=== PATIENT | male | born 1950 | race Caucasian/White ===

== ENCOUNTER 2016-02-10 14:05 | Inpatient (IN) | payer OTHER, MEDICARE ==
[~2016-02-10] VITALS: Ht 180.3 cm; Wt 101.6 kg
[~2016-02-10 14:05] MED LIST: ASPI325T32 PO; Alum-Mag Hydrox-Simeth 30 mL Suspension PO PRN; HYDR-4003 PO; METO25TA99 PO; Ondansetron 2 mg/mL 2 mL Inj IVPUSH PRN; Polyethylene Glycol (PEG) 17 Gm Powder PO PRN; Senna-Docusate 8.6-50 mg Tablet PO PRN; Sodium Chloride LOK Flush 10 mL Syringe IVFLUSH SCH
[2016-03-13 08:30] VITALS: BP 154/83; PULSE 94; RESP 20; O2SAT 100
[2016-03-13 08:39] VITALS: PULSE 122
[2016-03-13] MEDS ORDERED: Atropine 1 mg/10 mL (Code) Syringe IVPUSH PRN (08:40)
[2016-03-13] MEDS ORDERED: Polyethylene Glycol (PEG) 17 Gm Powder PO PRN (08:40)
[2016-03-13] MEDS ORDERED: Ondansetron 2 mg/mL 2 mL Inj IVPUSH PRN (08:40)
[2016-03-13] MEDS ORDERED: Senna-Docusate 8.6-50 mg Tablet PO PRN (08:40)
[2016-03-13] MEDS ORDERED: Alum-Mag Hydrox-Simeth 30 mL Suspension PO PRN (08:40)
[2016-03-13] MEDS ORDERED: WARF5TAB PO (09:17)
[2016-03-13] MEDS ORDERED: METO-272 PO (09:17)
[2016-03-13] MEDS ORDERED: LISI-571 PO (09:17)
[2016-03-13 09:35] LABS: Mean Corpuscular Hemoglobin 30.4 pg (27.0-35.0); Mean Corpuscular Volume 91.5 fL (81-100)
[2016-03-13 09:52] LABS: INR 3.72 ratio
[2016-03-13 12:31] VITALS: BP 142/95; PULSE 71; RESP 18; O2SAT 96
--- NOTE | 2016-03-13 14:13 | PCM.PHAPRO ---
Progress Warfarin Management by Pharmacy: -Indication: paroxysmal afib -Inr Goal: 2-3 -Home Dose: warfarin 5mg daily -Concurrent anticoagulation: none -Coag Trends: inr on admission today is 3.72 -Drug Interactions: none noted -H/H 14.7/44.2, Platelets 189 -Plan: will hold warfarin this evening. serial inr's have been ordered. pharmacy to follow and monitor Connie Byrd [facility] Mar 13, 2016 14:12
[2016-03-13 16:30] VITALS: BP 175/110; PULSE 95; RESP 20; O2SAT 100
[2016-03-13] MEDS: Sodium Chloride LOK Flush 10 mL Syringe IVFLUSH SCH (16:34)
--- NOTE | 2016-03-13 17:13 | NUR ---
Admit/Blood Pressure Pt. arrived from home with in room 2027 PCC at ~0815 to be monitored for a new med., sotalol. Pt. is independent at baseline, A&Ox3, ALVARADO, denies CP, SOB, N/V/D/C or abdominal pain. Pt. does c/o of his left shoulder stating "I slipped on some ice back in January and since then its been hurting, it hurts when I move it, and it hurts when I lay down in bed". Pt. is on tele and is AFIB per tele. Pt. had a blood pressure of 175/110 on the left and when I rechecked on the right arm it was 165/104 at ~ 1630. Pt. is asymptomatic stating "this is normal to me", was made aware
[2016-03-13 20:12] VITALS: BP_SYST 157; PULSE 68; RESP 16; O2SAT 96
[2016-03-13 23:42] VITALS: BP 143/94; PULSE 90; RESP 16; O2SAT 98
[2016-03-14] VITALS (9 sets, daily range): BP systolic 140–164; BP diastolic 87–114; PULSE 74–101; RESP 16–20; O2SAT 95–99
[2016-03-14] MEDS: Sodium Chloride LOK Flush 10 mL Syringe IVFLUSH SCH ×5 (00:30→23:29)
[2016-03-14 03:58] LABS: INR 4.15 ratio
--- NOTE | 2016-03-14 04:21 | NUR ---
Sotalol Loading Patient given sotalol dose at 5 in the evening. EKG done two hours post-dose; patient continues to be in a-fib with rates in the 80s-90s. QTc on new EKG 473. Continue to monitor.
[2016-03-14] MEDS: MeTOProlol XL 25 mg ER24 Tablet PO SCH (08:30)
--- NOTE | 2016-03-14 13:06 | PCM.PHAPRO ---
Progress WARFARIN MANAGEMENT PER PHARMACY [facility] DFF Date Mar 14-Mar INR 3.72 4.15 INR change 0.43 Warf Dose HELD HELD With uptrending INR, will continue to hold warfarin tonight. Will continue to monitor. Rosas Reardon, PharmD Rosas Reardon Mar 14, 2016 13:06
--- NOTE | 2016-03-14 14:51 | PROG NOTE ---
[address] [address] PROGRESS NOTE PATIENT: EDWARD INMAN : 1950 MR#: [id number] ADMIT: 03/13/2016 JOB ID: [id number] DATE: 03/14/2016 CHIEF COMPLAINT: Mild fatigue symptoms. The patient is a pleasant, 65-year-old man with a longstanding history of paroxysmal atrial fibrillation and who has become persistent in atrial fibrillation for the last few years. He had previously been treated with flecainide but developed side effects, and with the persistent atrial fib he has been fatigued and short-winded but denies any lightheadedness or syncope. He has also experienced some chest discomfort that seems atypical. Recent stress testing by nuclear perfusion study showed no evidence of ischemia or infarct. The patient is scheduled for an atrial fibrillation ablation procedure in April 2016. Prior to that, he will need to be on antiarrhythmic medication, and that is the purpose of this hospitalization. He has now had three doses of sotalol and is not feeling any particular side effects from the medication. He still has mild fatigue. He also notes pruritic legs, but this has been an ongoing problem for some months. He denies GI upset or lightheadedness. OBJECTIVE DATA: His initial ECG showed atrial fibrillation with an average rate of 116 BPM. The measured QT was 339 msec, QTc 471. After the first dose of sotalol, the rate came down to 92, but atrial fibrillation persisted. After the second dose of sotalol, the ECG showed average rate 96 BPM, in atrial fibrillation with a QTc of 473 msec. Now, after the third dose, the average rate in atrial fibrillation is 85 BPM, and QT interval measured by me is 395 msec with corrected QT of 470 msec. Lab data: The patient is on warfarin and his initial INR was high at 3.72 and warfarin was withheld. This morning, the INR is 4.15. Serum chemistry yesterday showed potassium 5.3, creatinine 1.09, magnesium 2.0. Vital signs continue show mild hypertension with BP today 151/95. Respiratory rate 20, and pulse oximetry shows 98% on room air. He is alert and well oriented, and in no distress. His physical exam is unchanged from yesterday. IMPRESSION AND PLAN: Persistent atrial fibrillation, average rate has come down from 116 BPM to 85 BPM after the third dose of sotalol. The QT interval has remained within the 15% limit, increased from baseline, and so the same dose of sotalol 80 mg b.i.d. will be continued. We will get an EKG two hours after this evening's dose and then plan on cardioversion tomorrow by Dr. Liz Bell.
--- NOTE | 2016-03-14 16:28 | CONS ---
[address] [address] CONSULTATION REPORT PATIENT: EDWARD INMAN : 1950 MR#: [id number] ADMIT: 03/13/2016 JOB ID: [id number] DATE OF SERVICE: 03/13/2016 CHIEF COMPLAINT: Persistent AFib. HISTORY OF PRESENT ILLNESS: The patient is a delightful 65-year-old man with paroxysmal now persistent atrial fibrillation. He reports fatigue and dyspnea on exertion along with awareness of palpitations. He is here for sotalol load. PAST MEDICAL HISTORY: 1. Cardiomyopathy-most recent echocardiogram showed ejection fraction of 40+/-5%. This study was performed January 29, 2016. 2. Paroxysmal mild persistent atrial fibrillation. 3. Hyperlipidemia. 4. Kidney stones. 5. Chronic left shoulder pain after a fall. 6. He has a history of hepatitis C treated with antiviral therapy and considered to be cured following interferon. 7. Cardiac evaluation: Cardiac cath March 2012 was reassuring. There was 40% to 50% stenosis in the proximal LAD at the bifurcation of the first diagonal branch, and he has been medically managed for this problem. 8. The most recent graded exercise stress test was performed March 08, 2016. It showed reduced exercise capacity, functional aerobic impairment index is 31%. There was medium sized [id number] intensity, partially reversible, lateral and inferior perfusion defect that resolved on prone images suggesting diaphragmatic attenuation artifact. SOCIAL HISTORY: The patient does not smoke. She is currently in school. FAMILY HISTORY: Father had a five-way bypass surgery in his 60s. Also had prostate cancer. Patient is accompanied by his , Callie. He does not smoke. REVIEW OF SYSTEMS: He reports irregularly irregular pulse, awareness of palpitations and leg swelling, fatigue and shortness of breath. Otherwise, 10 point review of systems is negative. ALLERGIES: No known drug allergies. HOME MEDICATIONS: 1. Lipitor 20 mg daily. 2. Lisinopril 5 mg daily. 3. Toprol-XL 50 mg daily. 4. Warfarin 5 mg daily. 5. Vicodin 5/325 every 6 hours as needed for pain. PHYSICAL EXAMINATION: In here, a very pleasant, well-nourished man in no apparent distress. Temperature 36.8, blood pressure 142/95 up to 175/110, heart rate 68 up to 122 satting 96% to 100% on room air. Eyes: No scleral icterus. Heart: Normal S1, S2. Irregularly irregular. No murmurs. Lungs are clear anteriorly and neck is supple. No lymphadenopathy. No carotid bruit. Abdomen. Soft, positive bowel sounds. No hepatosplenomegaly. Extremities: Warm, well perfused. No clubbing, cyanosis, or edema. Skin: No rashes or lesions. LABS: March 13 show normal CBC, normal creatinine of 1, potassium was mildly elevated at 5.3. His INR today was 4. ASSESSMENT AND PLAN: In summary, this is a delightful 65-year-old man admitted for sotalol load. He will receive two doses on Tuesday, two doses on Tuesday. I plan to give him a dose on Tuesday and then cardiovert him and then anticipate sending him home Tuesday afternoon, March 15, 2016. Thank you very much for the opportunity to evaluate this patient. [facility]
[2016-03-14 17:22] LABS: APPEARANCE,URINE CLEAR (CLEAR,HAZY); COLOR,URINE YELLOW (YELLOW)
[2016-03-14 17:23] LABS: OCCULT BLOOD,URINE NEGATIVE (NEGATIVE); PH,URINE 6.5 (5.0-8.0); UROBILINOGEN,URINE NORMAL (NORMAL)
--- NOTE | 2016-03-14 19:11 | NUR ---
Sotalol Loading Pt. was given sotalol around 0830, EKG ordered for 2hrs post. Pts. QTC was 494, PT. denies CP, SOB, or any type of pain. Pt. is in his room with his watching the football game comfortably.
--- NOTE | 2016-03-14 23:38 | NUR ---
Sotalol Loading Evening sotalol dose given at 2020. Two hour post EKG done at 2230; QTc 496. Patient NPO after midnight for planned cardioversion in the morning. Continue to monitor.
[2016-03-15] VITALS (12 sets, daily range): BP systolic 123–167; BP diastolic 83–116; PULSE 52–103; RESP 18–22; O2SAT 95–98
[2016-03-15] MEDS: Sodium Chloride LOK Flush 10 mL Syringe IVFLUSH SCH ×2 (00:30→09:46)
[2016-03-15 04:05] LABS: INR 2.69 ratio
[2016-03-15] MEDS ORDERED: 0.9% Sodium Chloride 1,000 ML IV SCH (08:00)
[2016-03-15] MEDS: MeTOProlol XL 25 mg ER24 Tablet PO SCH (08:30)
[2016-03-15] MEDS ORDERED: 0.9% Sodium Chloride 500 ML ONE (08:53)
[2016-03-15] MEDS ORDERED: fentaNYL-PF 50 mCg/mL 2 mL Inj ONE ×2 (08:54→08:55)
[2016-03-15] MEDS ORDERED: Flumazenil 0.1 mg/mL 5 mL Inj IV ONE (08:56)
[2016-03-15] MEDS ORDERED: Methohexital 10 mg/mL 50 mL Inj ONE (08:56)
--- NOTE | 2016-03-15 10:03 | PROCED ---
[address] [address] PROCEDURE NOTE PATIENT: EDWARD INMAN : 1950 MR#: [id number] ADMIT: 03/13/2016 JOB ID: [id number] DATE OF SERVICE: 03/15/2016 PREOPERATIVE DIAGNOSIS(ES): POSTOPERATIVE DIAGNOSIS(ES): SURGEON: iLz Bell MD PROCEDURES PERFORMED: ZOILA cardioversion. INDICATION: Atrial fibrillation. METHOD: Following informed consent, the patient underwent ZOILA which showed no evidence of left atrial appendage thrombus. His INR is 2.6. He is on warfarin. ZOILA showed mild cardiomyopathy which is consistent with tachycardia mediated cardiomyopathy. He was sedated with 25 mcg of fentanyl, 4 mg of Versed, and 40 mg of Brevital. Then, 200 joules of synchronized energy cardioversion was performed. Normal sinus rhythm was restored. Vital signs are stable. No complications immediately postprocedure. Thank you very much for the opportunity to participate in this patient's care.
[2016-03-15] MEDS ORDERED: SOTA80TA PO (10:24)
--- NOTE | 2016-03-15 10:56 | PCM.DIMED ---
Discharge Instructions Date of Service Mar 15, 2016 Dates of Hospitalization Mar 13, 2016 at 08:15 Discharge Diagnosis Discharge Diagnosis persistent afib tachycardia mediated cardiomyopathy Medication Instructions I transmitted electronically your new medicines to your pharmacy (Cristian Laura) Sotalol 80 mg twice a day Toprol XL (metoprolol succinate) 25 mg daily Lisinopril 20 mg daily continue Lipitor (Atorvastatin) 20 mg daily Continue warfarin (Coumadin) Take 5 mg on Tuesday, Tuesday and Tuesday Take 2.5 mg on Tuesday, , Tuesday and Tuesday Diet Low fat, Low Sodium Activity No restrictions Call your provider Shortness of breath, Bleeding Patient Instructions Follow-up in: 4 weeks Liz Bell MD Mar 15, 2016 10:56
[2016-03-15] MEDS ORDERED: METO25TA3 PO (11:01)
[2016-03-15] MEDS ORDERED: WARF5TAB7 PO (11:01)
[2016-03-15] MEDS ORDERED: LISI-567 PO (11:01)
--- NOTE | 2016-03-15 11:11 | NUR ---
To [facility] pt alert and oriented, independent, denies pain. ambulatory in room with steady gait. pt ordered for ZOILA and cardioversion in [facility]. sotalol dose given, and pt transported to [facility] via wheelchair at about 0830 structured cabling technician informed.
--- NOTE | 2016-03-15 11:30 | NUR ---
S/P [facility] procedure report from [facility] procedure completed. discharge instructions/meds processed in [facility]. Personal belongings taken to patient in [facility] at 1130. Pt discharged from [facility].
--- NOTE | 2016-03-15 11:53 | DIS ---
[address] [address] DISCHARGE SUMMARY PATIENT: EDWARD INMAN : 1950 MR#: [id number] ADMIT: 03/13/2016 JOB ID: [id number] DIS: 03/15/2016 DISCHARGE DIAGNOSES: 1. Persistent atrial fibrillation. 2. Tachycardia mediated cardiomyopathy. PROCEDURES PERFORMED: ZOILA on March 15, 2016. No evidence of left atrial appendage thrombus. ZOILA was followed by cardioversion. Normal sinus rhythm was restored. HOSPITAL COURSE: The patient was admitted electively for sotalol load. He had normal QTc with no evidence of ventricular tachycardia or QT prolongation. He underwent an elective ZOILA and cardioversion on March 15, and normal sinus rhythm was restored. Therefore, he is discharged home in stable condition on the following medications: 1. Lipitor 20 mg, one tablet by mouth daily. I sent a 90 day supply and three refills to his pharmacy. 2. Sotalol 80 mg, one tablet by mouth twice a day. I dispensed a one month supply with three refills. 3. Toprol-XL. Dose was reduced from 50 mg that he takes as an outpatient to 25 mg daily. One tablet daily. I dispensed a two month supply and three refills. 4. Lisinopril was increased from 5 mg home dose to 20 mg dose because of uncontrolled hypertension, and I called in a 90 day supply and three refills. 5. Warfarin. He was previously taking 5 mg pills daily. I had him take 2.5 mg on Tuesday, , Tuesday, Tuesday, and 5 mg Tuesday, Tuesday, Tuesday. The reason I did that is because his INR in the hospital was 3.7 on admission, 4 on March 14, and 2.7 today, so I was just afraid that 5 mg daily was too much. It seems that the 5 mg dose was not working, so we are going to alternate 5 mg and 2.5 mg daily. Thank you very much for the opportunity to evaluate this patient, and I anticipate following up with him in about a month.
--- NOTE | 2016-03-15 11:54 | NUR ---
Discharge Pt discharged to home with . Pt VSS on RA post recovery of ZOILA/Cardioversion, pt in sinus rhythm. Pt and stated verbal understanding of discharge instructions regarding use of home medications, signs of worsening condition and follow up appointments. Pt and left with personal belongings, discharge instructions, IV dc'd intact at approximately 1145.
--- NOTE | 2016-03-19 18:23 | DRSVH ---
[facility] [address] [place] [address] Echocardiogram Report Name: EDWARD INMAN RStudy Santo e: 03/15/2016 Height: 71 in Hospital Exam Location: [facility] Weight: 224 lb Gender: Male BSA: 2.2 m2 : 1950 Age: 65 yrs BP: 123/95 mmHg Reason For Study: AFIB Ordering Physician: Performed By: Harsh Valerio Interpretation Summary Normal LV size; normal wall thickness; mildly reduced LV systolic function, estimated at 45-50%. No significant valvular abnormalities. No evidence of CEE thrombus Procedure: Informed consent for Transesophageal Echocardiogram, and use of a contrast agent as needed, was obtained prior to the procedure. The patient was brought to the [facility] in a fasting state. An intravenous line was placed. A topical anesthetic agent was used for oropharangeal anesthesia. A bite block was inserted. IV concious sedation was administered using versed and fentanyl. A multifrequency, multiplane transesopheageal echocardiographic endoscope was inserted and manipulated in the standard fashion to achieve multiplane views. The transesophageal probe was passed without difficulty. A 2D transesophageal echocardiogram with spectral and color flow Doppler was performed. The usual views were obtained; basal, mid-esophageal, transgastric and aortic views. The patient's vital signs, including blood pressure, heart rate, pulse oximetry and cardiac rhythm were monitored throughout the procedure and remained stable. The patient tolerated the procedure well without evidence of orophangeal or esophageal trauma. The patient was in atrial fibrillation with controlled ventricular rate during the exam. The patient had a heart rate of 75-106 beats per minute. There were no complications. Atria: No left atrial mass or thrombus visualized. No thrombus is detected in the left atrial appendage. The interatrial septum is intact with no evidence for an atrial septal defect. Mitral Valve: The mitral valve leaflets appear normal. There is no evidence of stenosis, fluttering, or prolapse. There is moderate mitral regurgitation. Aortic Valve: The aortic valve is trileaflet. The aortic valve opens well. No aortic regurgitation is present. Tricuspid Valve: The tricuspid valve is not well visualized, but is grossly normal. There is trace tricuspid regurgitation. Pulmonic Valve: The pulmonic valve is not well visualized. Doppler Measurements & Calculations TR max jose: 158.1 cm/sec TR max P.0 mmHg Reading Physician:06:22 PM
[2016-04-20] MEDS ORDERED: ATOR20TA PO (19:28)
[2016-04-20] MEDS ORDERED: WARF5TAB7 PO ×2 (19:28)
[2016-04-20] MEDS ORDERED: METO50TA7 PO ×2 (19:28)
== END 2016-03-15 11:43 | disposition home or self-care (01) | DRG 310 ==
LOC: PCC 03-13 08:15
PROVIDERS: ADMIT Internal Medicine; ATTEND Internal Medicine
PROC: B245ZZ4 Ultrasonography of Left Heart, Transesophageal (ICD-10-PCS; principal; 2016-03-15)
PROC: 5A2204Z Restoration of Cardiac Rhythm, Single (ICD-10-PCS; 2016-03-15)
DX: I48.1 Persistent atrial fibrillation (principal); I48.0 Paroxysmal atrial fibrillation; E78.5 Hyperlipidemia, unspecified; I42.8 Other cardiomyopathies; I10 Essential (primary) hypertension; Z79.01 Long term (current) use of anticoagulants

== ENCOUNTER 2016-04-21 00:16 | Day surgery (SDC) | payer OTHER ==
[2016-04-21] VITALS (17 sets, daily range): BP systolic 124–173; BP diastolic 79–110; PULSE 57–88; RESP 10–20; O2SAT 92–100
[~2016-04-21] VITALS: Ht 180.3 cm; Wt 103.0 kg
[~2016-04-21 00:16] MED LIST changes: -ASPI325T32 PO; +ATOR20TA PO; -Alum-Mag Hydrox-Simeth 30 mL Suspension PO PRN; +LISI-567 PO; -METO25TA99 PO; +METO50TA7 PO; -Ondansetron 2 mg/mL 2 mL Inj IVPUSH PRN; -Polyethylene Glycol (PEG) 17 Gm Powder PO PRN; -Senna-Docusate 8.6-50 mg Tablet PO PRN; -Sodium Chloride LOK Flush 10 mL Syringe IVFLUSH SCH; +WARF5TAB7 PO
[2016-04-21] MEDS ORDERED: Phenylephrine 10,000 mCg/mL Inj ONE (00:17)
[2016-04-21] MEDS ORDERED: Ketamine 10 mg/mL 20 mL Inj ONE (00:17)
[2016-04-21] MEDS ORDERED: Rocuronium 10 mg/mL 5 mL Inj ONE (00:17)
[2016-04-21] MEDS ORDERED: MetoCLOpramide 5 mg/mL 2 mL Inj ONE (00:17)
[2016-04-21] MEDS ORDERED: Dexamethasone 4 mg/mL Inj ONE (00:17)
[2016-04-21] MEDS ORDERED: Propofol 10,000 mCg/mL 20 mL Inj ONE (00:17)
[2016-04-21] MEDS ORDERED: Ondansetron 2 mg/mL 2 mL Inj ONE (00:17)
[2016-04-21] MEDS ORDERED: fentaNYL-PF 50 mCg/mL 2 mL Inj ONE (00:17)
[2016-04-21] MEDS ORDERED: Lactated Ringer's 1,000 ML IV SCH ×2 (05:00→08:06)
[2016-04-21 06:35] LABS: BASOPHILS % (AUTO) 0.5 % (0-3); Mean Corpuscular Hemoglobin 30.7 pg (27.0-35.0); Mean Corpuscular Volume 91.2 fL (81-100); NEUTROPHILS % (AUTO) 56.3 % (40-74); Platelet Count 175 bil/L (150-400)
[2016-04-21] MEDS ORDERED: Benzoc-Butamben-Tetraca Spray 20 Gm Spray TOPICAL PRN (06:45)
[2016-04-21 06:52] LABS: INR 1.88 ratio
[2016-04-21] MEDS ORDERED: 0.9% Sodium Chloride 1,000 ML ONE (07:39)
[2016-04-21] MEDS ORDERED: Heparin 25,000 Unit/500 mL 0.45% NS Premix IV ONE (07:39)
[2016-04-21] MEDS ORDERED: Heparin 1,000 Units/500 mL NS Premix IV ONE (07:39)
[2016-04-21] MEDS ORDERED: Heparin 1,000 Unit/mL 10 mL Inj ONE (07:39)
[2016-04-21] MEDS ORDERED: Heparin 10,000 Unit/1,000 mL NS Premix IV ONE (07:41)
--- NOTE | 2016-04-21 08:04 | PCM.HPANE ---
Patient Data Surgeon Admitting Provider: Attending Provider:Puneet Adamson MD Primary Care Physician:Ira Aranda Other Provider:Margret Webb Anesthesia Reason for Visit Persistent A-Fib Ht/WT & BMI Height (Feet): 5 Height (Inches): 11.00 Weight (Kilograms): 103.000 Body Mass Index 31.79 Allergies Coded Allergies: codeine (Verified Allergy, Intermediate, Rash,Itching,, 04/21/16) Past Anesthesia History Anesthesia History: Denies:: Abnormal Airway, Anesthesia Reactions, Difficult Intubation Diabetes History Hx Diabetes?: No MRSA MRSA: No Medications Blood Thinner: Aspirin Hypertension Medication: Yes Home Meds Incl Beta Jerzy: Yes Previous Beta Jerzy Dose >24: Dose Not Given, Contraindicated Active Scripts Lisinopril 20 Mg [id number] Mg PO DAILY #30 TABLET Ref 0 Prov:Liz Bell MD 03/15/16 Reported Medications Metoprolol Succinate ER (Toprol XL)50 Mg Onznqp25 Mg PO FLAQUITO 04/20/16 Metoprolol Succinate ER (Toprol XL)50 Mg Tllrzt76 Mg PO AM 04/20/16 Atorvastatin (Lipitor)20 Mg Fnlhos80 Mg PO DAILY 04/20/16 Warfarin Sodium 5 Mg Tablet5 Mg PO 5x weekly take Tue///Tue/Tue04/20/16 Warfarin Sodium 5 Mg Tablet2.5 Mg PO 2x weekly take tuesday/04/20/16 Discontinued Reported Medications Hydrocodone-Acetaminophen 5-325 mg 1 Each Tablet1 Tablet PO Q6H PRN For Pain Ref 0 01/23/16 Sotalol HCl (Sotalol)80 Mg Avfcdl77 Mg PO BID 30 Days Ref 0 03/15/16 Discontinued Scripts Warfarin Sodium 5 Mg Tablet5 Mg PO DIRECTED #30 TABLET Ref 0 Prov:Liz Bell MD 03/15/16 Metoprolol Succinate ER (Toprol XL)25 Mg Wkfapt58 Mg PO DAILY #30 TABLET Ref 0 Prov:Liz Bell MD 03/15/16 History History of ENT Problems?: No HEENT History: Denies:: Abnormal Airway Difficult Intubation Hx of Heart Problems?: Yes Cardiovascular History: Positive for:: Atrial Fibrillation (PAF has converted to persistent, current w/u) Chest Pain Hypertension Irregular Heartbeat (Afib) Denies:: Cardiac Surgery (cardioversion) Congestive Heart Failure Edema Heart Murmur Pacemaker Thrombophlebitis Hx of Respiratory Problem?: No Respiratory History: Denies:: Asthma COPD Chest Surgery Dyspnea Emphysema Hemoptysis Oxygen Administration Pneumonia Tuberculosis Use of C-PAP Machine Hx Neurologic Problems?: Yes Neurological History: Positive for:: Dizziness Denies:: Alzheimer's Disease CVA Dementia Headaches Multiple Sclerosis Parkinson's Disease Seizures Hx of GI Problems?: Yes Gastrointestinal History: Positive for:: Hepatitis (Hep C, recovered [id number] ) Denies:: Gastrointestinal Bleeding Heartburn Hiatal Hernia Rectal Bleeding Hx of Problems?: Yes Genitourinary History: Positive for:: Kidney Stones (2016) Denies:: HX of Hemodialysis Urinary Tract Infection HX of Peritoneal Dialysis: No Male Hx: Denies:: Prostate Problems Scrotal Mass Testicular Surgery Skin History: Denies:: History Skin Disorders? Pressure Ulcers Hx Musculoskeletal Problems?: Yes Musculoskeletal History: Denies:: Back Injury Joint Replacement Musculoskeletal Trauma Hx of Psycho/Social Problems?: No Hx Surgeries?: Yes (hernia surgery ) Hx Any Other Health Problems?: Yes Other History: Positive for:: Hospitalization (cellulitis 3-4 years ago, hernia, kidney stones 5 years ago) Denies:: Cancer Endocrine Disease Thyroid Disease History Blood Transfusions: Positive for:: Accept Blood Products? Blood Transfusions (1974,pt contracted hepatitis c) Denies:: Blood Transfuse Reaction Hx Diabetes: No Hx Alcohol Use: Yes (Occasional 1-3 drinks per month)Hx Substance Use: Yes ( Many years ago, tried some. ) Smoking Status: Former Smoker Have You Smoked inLast 12 mo: No Stop/Bang Treated for Sleep Apnea?: No Do You Have a CPAP Machine?: No RUDOLPH Risk Assessment: Low Risk, <3 Yes Risk Assessment Category Category 1A: Patient has history of documented sleep apnea, and HAS NOT received any narcotic, sedative or anesthesia administration during this stay. Category 1B: Patient has history of documented sleep apnea, and HAS received any narcotic , sedative or anesthesia administration during this stay Category 2: Patient has SUSPECTED Obstructive Sleep Apnea, and HAS received any narcotic , sedative or anesthesia administration during this stay. Category 3: Patient has SUSPECTED Obstructive Sleep Apnea and HAS NOT received narcotic, sedative or anesthesia administration during this stay. Category 4: Outpatient in Procedural Areas with known sleep apnea or who screen positive for High Risk via the STOP/BANG questionnaire. Exam Exam Vital Signs Vital Signs Date Time Temp Pulse Resp B/P Pulse Ox O2 Delivery O2 Flow Rate FiO2 04/21/16 06:53 36.5 88 14 157/110 96 Room Air General Appearance: Oriented X3 HEENT/AIRWAY: MP 2 Lungs: Normal Air Movement Heart: Regular Rate/Rhythm Meds/Labs/Diagnostics Labs Test 04/21/16 06:25 White Blood Count 5.9th/mm3 (3.8-10.1) Red Blood Count 4.75mil/mm3 (4.40-5.80) Hemoglobin 14.6g/dL (13.8-17.2) Hematocrit 43.3% (41.0-50.0) Mean Corpuscular Volume 91.2fL (81-100) Mean Corpuscular Hemoglobin 30.7pg (27.0-35.0) Mean Corpuscular Hemoglobin Concent 33.7% (32.0-37.0) Red Cell Distribution Width 13.7% (12.3-15.4) Platelet Count 175bil/L (150-400) Neutrophils (%) (Auto) 56.3% (40-74) Lymphocytes (%) (Auto) 32.0% (14-46) Monocytes (%) (Auto) 9.0% (4-12) Eosinophils (%) (Auto) 2.0% (0-5) Basophils (%) (Auto) 0.5% (0-3) Prothrombin Time 20.4sec (8.1-12.5) Prothromb Time International Ratio 1.88ratio Sodium Level 142mEq/L (134-144) Potassium Level 4.2mEq/L (3.5-5.2) Chloride Level 104mEq/L (97-108) Carbon Dioxide Level 23mmol/L (18-29) Blood Urea Nitrogen 18mg/dL (8-27) Creatinine 0.99mg/dL (0.76-1.27) Estimat Glomerular Filtration Rate 80mL/min (>59) Glucose Level 110mg/dL (60-99) Calcium Level 8.8mg/dL (8.5-10.1) Plan Impression Patient chart reviewed, patient interviewed and anesthestic plan with risks, benefits, and alternatives discussed, and informed consent obtained. NPO Status: 9PM 01/24 ASA Physical Status: ASA3 Severe Disease Anesthetic Support Modalities: Arterial Line Anesthetic Plan: GA Bene/Risks/Altern/Consents: Yes HP Complete Prior to Induction: Yes Ean Mock MD Apr 21, 2016 08:04
[2016-04-21] MEDS ORDERED: Lactated Ringer's 500 ML IV PRN (08:06)
[2016-04-21] MEDS ORDERED: Ondansetron 2 mg/mL 2 mL Inj IVPUSH PRN (08:10)
[2016-04-21] MEDS ORDERED: Labetalol 5 mg/mL 4 mL Inj IV PRN (08:10)
[2016-04-21] MEDS ORDERED: HYDROmorphone 1 mg/mL Inj IVPUSH PRN (08:10)
[2016-04-21] MEDS ORDERED: Dexamethasone 4 mg/mL Inj IVPUSH PRN (08:10)
[2016-04-21] MEDS ORDERED: MetoCLOpramide 5 mg/mL 2 mL Inj IVPUSH PRN (08:10)
[2016-04-21] MEDS ORDERED: EPHEDrine Sulfate 50 mg/mL Inj IVPUSH PRN (08:10)
[2016-04-21] MEDS ORDERED: Phenylephrine 10,000 mCg/mL Inj IVPUSH PRN (08:10)
[2016-04-21] MEDS ORDERED: Amiodarone 150 mg/100 mL D5W Premix IV ONE (08:47)
[2016-04-21] MEDS ORDERED: Protamine Sulfate 10 mg/mL 5 mL Inj ONE (11:17)
[2016-04-21] MEDS: fentaNYL-PF 50 mCg/mL 2 mL Inj IVPUSH PRN ×2 (12:23→12:56)
[2016-04-21] MEDS ORDERED: Ketorolac 30 mg/mL 2 mL Inj ONE (12:45)
[2016-04-21] MEDS ORDERED: Ketorolac 15 mg/mL Inj IVPUSH PRN (12:55)
--- NOTE | 2016-04-21 13:08 | NUR ---
Pt returned from procedure approx one hour ago.He feels comfortable except for left shoulder pain which was ongoing prior to procedure, related to possible torn rotator cuff.Fentanyl 100mcg total in divided doses given since return with minimal improvement.I also placed an ice pack over shoulder and instituted passive range of motion with his left arm which is helpful. I have removed right radial arterial line
--- NOTE | 2016-04-21 13:16 | PROCED ---
[address] [address] PROCEDURE NOTE PATIENT: EDWARD INMAN : 1950 MR#: [id number] ADMIT: 04/21/2016 JOB ID: [id number] DATE OF SERVICE: 04/21/2016 PREOPERATIVE DIAGNOSIS(ES): Persistent drug refractory atrial fibrillation. POSTOPERATIVE DIAGNOSIS(ES): Persistent drug refractory atrial fibrillation. PROCEDURES PERFORMED: 1. Comprehensive electrophysiology study including left atrial pacing and recording. 2. Three-dimensional electroanatomic mapping using the CARTO 3 system. 3. Atrial fibrillation ablation with pulmonary vein isolation. 4. Transseptal puncture x2. 5. Intracardiac echocardiography. 6. Cardioversion. 7. Barium esophagram. 8. Fluoroscopy. SURGEON: Visual Artist: Puneet Adamson MD, electrophysiology attending CLOTH SHRINKING MACHINE OPERATOR: Javi Goodwin PA-C, Madison Odonnell. ANESTHESIA: General endotracheal anesthesia was undertaken for this case. INDICATION: The patient is a pleasant 55-year-old man with symptomatic persistent atrial fibrillation that is refractory to multiple antiarrhythmics. After discussion of the risks and benefits of catheter-based mapping and ablation, he opted to proceed. PROCEDURAL DESCRIPTION: Following informed and signed consent, the patient was taken to the EP laboratory in the fasting nonsedated state where he was prepped and draped in the usual sterile fashion. He underwent a preprocedural transesophageal echocardiogram by Dr. Marquez, confirming a lack of intracardiac thrombus. Please see separate dictated report for the details of that procedure. The bilateral groins were infiltrated with 1% lidocaine; then, using modified Seldinger technique, two 8-Panamanian sheaths were inserted into the right femoral vein. A 7- and 10.5-Panamanian sheath were inserted into the left femoral vein. Under fluoroscopic guidance, a deflectable decapolar catheter was advanced to the coronary sinus with the most proximal bipoles at the os of the sinus. An intracardiac echocardiography probe and was advanced to the RV outflow tract and used to visualize the pericardial space. No effusion was noted. The ICE probe was pulled back into the right atrium and used to visualize the interatrial septum in assistance of transseptal puncture. Two transseptal punctures were performed in an identical fashion. Each of the short 8-Panamanian sheaths was exchanged over a long wire for a Ribeiro sheath dilator and [place]rough needle. The entire system was used to engage the interatrial septum; then, under fluoroscopic pressure and ICE guidance, the septum was traversed twice to deploy the two Ribeiro sheaths into the left atrium. The patient was heparinized for a goal ACT of 350-400 seconds for the entire time we were in the left atrium following the first and preceding the second transseptal puncture. Through the two Ribeiro sheaths an F-curve Smart Touch irrigated ablation catheter was passed, as was a 20 pole PentaRay catheter. A re-survey of the pericardial space showed no evidence of effusion A three-dimensional electroanatomic map of the left atrium and four pulmonary veins was created using the [place] 3 system. The pulmonary were then sequentially isolated for entrance and exit block. We started with the left upper pulmonary vein, then the left lower, right upper, and right lower pulmonary veins. After entrance block in the left upper pulmonary vein a 200 joule biphasic synchronized shock was delivered. This failed to convert the patient to sinus rhythm. Another shock was delivered, ultimately converting him to sinus rhythm. Exit block was confirmed in that vein. We then addressed the left lower, right upper, and right lower pulmonary veins. With entrance and exit block in all four veins we disengaged from the left atrium, resurveyed the pericardial space, which showed no evidence of effusion. Turned off the heparin and reversed the patient's heparin with protamine. During the course of this study we did complete a comprehensive electrophysiology study with right atrial pacing and recording, right ventricular pacing and recording, His bundle recording, left atrial pacing and recording via the coronary sinus catheter. All catheters and sheaths were removed. Manual pressure was held for hemostasis. The patient was transferred to the [facility] for monitoring and bedrest. COMPLICATIONS: None. BLOOD LOSS: 20 mL. FINDINGS: 1. Baseline rhythm is atrial fibrillation. Post ablation and cardioversion he is in sinus rhythm with RR interval of 1127 msec, TN 149 msec, QRS 108 msec, QT 493 msec. 2. Intracardiac intervals: AH interval 76 msec. HV 78 msec. 3. Retrograde conduction: VA Wenckebach seen at 280 msec. 4. Pulmonary vein isolation with entrance and exit block in all four pulmonary veins as described above. IMPRESSION: Successful pulmonary vein isolation procedure for persistent drug refractory atrial fibrillation. PLAN: 1. Bed rest x4 hours. 2. Amiodarone oral load. 3. Reduce metoprolol to 50 mg twice daily. 4. Continue warfarin. 5. Protonix 40 mg p.o. daily x1 month. 6. Monitoring overnight. 7. Follow up with hebert Treviño PA-C in three to four weeks and with myself in three months. ATTENDING STATEMENT: Puneet Adamson MD, electrophysiology attending, was present for and supervised/performed all aspects of this procedure.
[2016-04-21] MEDS ORDERED: Ketorolac 30 mg/mL 2 mL Inj IVPUSH PRN (13:34)
[2016-04-21] MEDS ORDERED: HYDROmorphone 2 mg/mL Inj IV PRN (13:38)
--- NOTE | 2016-04-21 13:42 | PCM.ANEP1 ---
Post Anesthesia Phase 1 PACU Phase 1 Assessment Vital Signs Vital Signs Date Time Temp Pulse Resp B/P Pulse Ox O2 Delivery O2 Flow Rate FiO2 04/21/16 13:00 58 14 138/86 93 Room Air 04/21/16 12:45 57 15 132/83 95 Room Air 04/21/16 12:30 58 14 124/88 92 Room Air 04/21/16 12:15 58 14 136/89 95 Room Air 04/21/16 12:10 61 14 131/84 94 Room Air 04/21/16 12:07 36.0 61 10 135/83 96 Room Air 04/21/16 06:53 36.5 88 14 157/110 96 Room Air Anesthetic Administered: GA Level of Alertness: Awake, talking Pain: No Pain Scale Score: 8 Nausea or Vomiting: No Oxygen Delivery: Room Air Lungs: Normal Air Movement Ean Mock MD Apr 21, 2016 13:42
--- NOTE | 2016-04-21 13:43 | PCM.ANEP2 ---
Post Anesthesia Evaluation ASA/CMS Post Anesthesia VS in Patient's Normal Range?: Yes Resp Stable; Airway Patent?: Yes CV Function & Hydration Stable: Yes Mental Status Recovered?: Yes Pain control Satisfactory?: Yes N/V Control Satisfactory?: Yes Ean Mock MD Apr 21, 2016 13:43
[2016-04-21] MEDS: oxyCODONE-Acetamin 5-325 mg Tablet PO PRN ×2 (14:48→20:33)
--- NOTE | 2016-04-21 15:50 | NUR ---
Off bedrest, ambulatory to bathroom, bloom catheter removed prior to getting up.
--- NOTE | 2016-04-21 16:32 | NUR ---
Report called to Nena Kowalski R.N. He remains in sinus rhythm. Left shoulder much improved as he is now ambulatory.bilateral groin sites without bleeding or hematoma.
--- NOTE | 2016-04-21 16:53 | NUR ---
Pt tx to room 2006 in stable condition. Bilateral groin puncture sites without bleeding or hematoma.Handoff to Nena Melara at bedside.
--- NOTE | 2016-04-21 17:41 | DRSVH ---
[facility] [address] [place] [address] Echocardiogram Report Name: EDWARD INMAN RStuddov Santo e: 04/21/2016 Hospital Exam Location: [facility] Gender: Male : 1950 Age: 65 yrs BP: 167/93 mmHg Reason For Study: Arrhythmia Ordering Physician: Performed By: Carla Harris Interpretation Summary The left ventricle is normal in size but left ventricular systolic function is mild to moderately reduced with the ejection fraction visually estimated to be 45-55%, likely in part due to the rapid atrial fib with mild global hypokinesis of the left ventricle but no obvious focal wall motion abnormalities. The right ventricle is normal size and right ventricular systolic function is mildly reduced. While spontaneous contrast is noted in the left atrium, no left atrial mass or thrombus is visualized, and specifically no thrombus is detected in the left atrial appendage. The interatrial septum is intact with no evidence for an atrial septal defect and there is no Doppler evidence for an interatrial shunt. There is mild to moderate mitral regurgitation with multiple small regurgitant jets present but no other obvious significant valvular heart disease. Mild atherosclerotic plaque is noted in the aortic arch. Procedure: Informed consent for Transesophageal Echocardiogram, and use of a contrast agent as needed, was obtained prior to the procedure. The patient was brought to the cardiac catheterization lab in a fasting state. An intravenous line was placed. Sedation was managed by anesthesiologist; see anesthesiology notes for details. A multifrequency, multiplane transesopheageal echocardiographic endoscope was inserted and manipulated in the standard fashion to achieve multiplane views. The transesophageal probe was passed without difficulty. A 2D transesophageal echocardiogram with spectral and color flow Doppler was performed. The patient's vital signs, including blood pressure, heart rate, pulse oximetry and cardiac rhythm were monitored throughout the procedure and remained stable. The patient tolerated the procedure well without evidence of orophangeal or esophageal trauma. The patient was in atrial fibrillation with heart rates between 116-149 bpm during the exam. There were no complications. Left Ventricle: The left ventricle is normal in size. Left ventricular systolic function is mild to moderately reduced. Left ventricular ejection fraction is estimated to be 45-55%. Likely in part due to the rapid atrial fib. There is mild global hypokinesis of the left ventricle. There are no focal wall motion abnormalities. Right Ventricle: The right ventricle is normal size. Right ventricular systolic function is mildly reduced. Atria: Spontaneous contrast in LA. No left atrial mass or thrombus visualized. No thrombus is detected in the left atrial appendage. There is no Doppler evidence for an interatrial shunt. The interatrial septum is intact with no evidence for an atrial septal defect. Mitral Valve: The mitral valve is normal in structure and function. There is mild to moderate mitral regurgitation. There are multiple regurgitant jets present. Aortic Valve: The aortic valve is trileaflet. The aortic valve opens well. There is trace aortic regurgitation. Tricuspid Valve: The tricuspid valve leaflets are thin and pliable. Pulmonic Valve: There is no other significant valvular heart disease. Great Vessels: Mild atherosclerotic plaque(s) in the aortic arch. Reading Physician:05:40 PM
--- NOTE | 2016-04-21 18:17 | NUR ---
Groin sites The pt's bilateral groin sites are sift with no bruising, drainage or pain - Pulses bilaterally noted. The pt is independent in the room, tolerating PO well, and is voiding. All vitals WNL, and the pt remains in SR.
[2016-04-21 19:22] LABS: APPEARANCE,URINE HAZY (CLEAR,HAZY); COLOR,URINE YELLOW (YELLOW); PH,URINE 5.5 (5.0-8.0)
[2016-04-21 19:23] LABS: OCCULT BLOOD,URINE MODERATE (NEGATIVE); UROBILINOGEN,URINE NORMAL (NORMAL)
[2016-04-21] MEDS: MeTOProlol XL 50 mg ER24 Tablet PO SCH (21:10)
--- NOTE | 2016-04-22 00:48 | NUR ---
Ambulation/Groin sites Pt up ad becca in room without assistance. Denies any SOB or heart palpitations. Groin sites not oozing, soft, pt denies any discomfort.
[2016-04-22] MEDS: oxyCODONE-Acetamin 5-325 mg Tablet PO PRN ×2 (02:55→08:55)
[2016-04-22 04:12] VITALS: BP 164/91; PULSE 60; RESP 18; O2SAT 96
[2016-04-22 04:16] LABS: INR 1.9 ratio
[2016-04-22 05:01] VITALS: PULSE 84
[2016-04-22] MEDS ORDERED: Pantoprazole 40 mg ER24 Tablet PO SCH (06:30)
[2016-04-22 08:00] VITALS: PULSE 119
--- NOTE | 2016-04-22 08:30 | PCM.DIMED ---
Discharge Instructions Date of Service Apr 22, 2016 Dates of Hospitalization Discharge Diagnosis Discharge Diagnosis Persistent Atrial Fibrillation Diet Heart Healthy Activity Other (Do not sit in a bath tub, hot tub or pool for 5 days to prevent infection. To prevent bleeding, do not lift, push or pull more than 10 lbs for 5 days.) Call your provider Fever or Chills, Bleeding, Excessive diarrhea, Weakness (unilateral) Patient Instructions Mid-level Provider (F9): Javi Treviño PA-C Follow-up with Mid-level in: 4 weeks Javi Treviño PA-C Apr 22, 2016 08:30
[2016-04-22 08:41] VITALS: BP 178/99; PULSE 67; RESP 18; O2SAT 98
[2016-04-22] MEDS ORDERED: PANT40TA3 PO (08:52)
[2016-04-22] MEDS ORDERED: AMIO200T PO (08:52)
[2016-04-22] MEDS ORDERED: METO50TA7 PO (08:52)
[2016-04-22] MEDS: MeTOProlol XL 50 mg ER24 Tablet PO SCH (08:55)
--- NOTE | 2016-04-22 09:19 | DIS ---
[address] [address] DISCHARGE SUMMARY PATIENT: EDWARD INMAN : 1950 MR#: [id number] ADMIT: 04/21/2016 JOB ID: [id number] DIS: 04/22/2016 REASON FOR ADMISSION: Atrial fibrillation ablation procedure. CHIEF COMPLAINT: Persistent atrial fibrillation, fatigue and dyspnea. BRIEF HISTORY: The patient is a pleasant 65-year-old man with a history of persistent atrial fibrillation who has previously been treated with sotalol but this was ineffective and he developed side effects as well. He has an experienced feeling very well after a cardioversion when he was in sinus rhythm but once back in atrial fibrillation he develops worsening symptoms of palpitations and shortness of breath with anxiety. COURSE IN HOSPITAL: The patient was admitted through the [facility] and taken to the fence laborer, where he was first placed under general anesthesia by the anesthesiologist and then he had a ZOILA which showed no evidence of left atrial thrombus. The atrial fibrillation ablation procedure was undertaken and completed without incident. After the femoral sheaths were removed and hemostasis was obtained, he was awakened from anesthesia and then transferred back to the [facility] for recovery from sedation. He was later transferred up to the [facility] where he did well. The Whalen catheter was removed and he was able to urinate spontaneously. In the morning he was ambulatory without difficulty. The right and left femoral access sites were closed and dry and there was no hematoma or bleeding or discomfort. He had mild central chest discomfort, but no worrisome pain. DISPOSITION: He was discharged home in good condition with a follow up appointment at the [facility] Cardiology office in one month. He was asked not to lift, push or pull more than 10 pounds for five days to prevent bleeding and to prevent infection. He was asked to not sit in a bathtub, hot tub or pool for five days. He will take medications as prescribed and follow a heart healthy diet. DISCHARGE MEDICATIONS: 1. Amiodarone 200 mg b.i.d. 2. Pantoprazole 40 mg daily for one month. 3. Atorvastatin 20 mg daily. 4. Lisinopril 20 mg daily. 5. Warfarin 2 mg alternating with 5 mg as directed by his Anticoagulation Clinic. 6. Metoprolol 50 mg b.i.d. FINAL DIAGNOSES: Persistent atrial fibrillation.
--- NOTE | 2016-04-22 13:56 | NUR ---
Discharge of patient Reviewed discharge instruction with patient. Pt verbalized understanding. Pt discharged via wheelchair with prescriptions and instructions. IV and Telemetry previously discontinued. Pt left hospital with to home self care.
== END 2016-04-22 13:55 | disposition home or self-care (01) ==
LOC: SOUO 00:16 → PCC 16:55 → SOUO 23:59
PROVIDERS: ATTEND Internal Medicine Cardiovascular Disease
DX: I48.1 Persistent atrial fibrillation (principal); Z79.01 Long term (current) use of anticoagulants; T44.7X5D Adverse effect of beta-adrenoreceptor antagonists, subsequent encounter
CPT/HCPCS: 36415; 80048; 81000; 85025; 85610; 87086; 93005; 93613; 93656; 93662; C1730; C1732; C1759; C1769; C1894; C8925; J0282; J1100; J1170; J1644; J2250; J2370; J2405; J2720; J2765; J3010; J7040

== ENCOUNTER 2016-04-28 09:42 | Day surgery (SDC) | payer OTHER ==
[2016-04-28] VITALS (8 sets, daily range): BP systolic 126–157; BP diastolic 90–106; PULSE 41–85; RESP 16; O2SAT 96–98
[~2016-04-28] VITALS: Ht 180.3 cm; Wt 101.0 kg
[~2016-04-28 09:42] MED LIST changes: +AMIO200T PO; -HYDR-4003 PO; +PANT40TA3 PO
[2016-04-28] MEDS ORDERED: AMIO200T PO (12:09)
[2016-04-28] MEDS ORDERED: Atropine 1 mg/10 mL (Code) Syringe ONE (12:20)
[2016-04-28] MEDS ORDERED: Methohexital 10 mg/mL 50 mL Inj ONE (12:20)
--- NOTE | 2016-04-28 13:20 | NUR ---
Pt discharged to home, ambulatory, accompanied by spouse. Pt's VSS, SB, IV discontinued intact. Pt given all discharge and follow up instructions and had no further questions at time of d/c.
--- NOTE | 2016-04-28 15:05 | PROCED ---
[address] [address] PROCEDURE NOTE PATIENT: EDWARD INMAN : 1950 MR#: [id number] ADMIT: 04/28/2016 JOB ID: [id number] DATE OF SERVICE: 04/28/2016 PREOPERATIVE DIAGNOSIS(ES): Atrial fibrillation. POSTOPERATIVE DIAGNOSIS(ES): Sinus rhythm. PROCEDURE PERFORMED: Direct current cardioversion. SURGEON: Puneet Adamson MD, electrophysiology attending. SEDATION: 1 mg of Versed and 40 mg of Brevital were utilized to an appropriate level of sedation. INDICATION FOR PROCEDURE: The patient is a pleasant 65-year-old man with recurrent atrial fibrillation who underwent ablation one week ago. He has recurrence of atrial fibrillation and after confirmation of adequate anticoagulation and a discussion of the risks and benefits of cardioversion, he opted to proceed. PROCEDURAL DESCRIPTION: Following informed and signed consent, the patient was taken to the procedure room in a fasting state where defibrillator patches were placed in the anterior and posterior positions. After adequate sedation, a 200 joule biphasic synchronized shock was used to convert him to sinus rhythm. He will be allowed to recover and discharged home for close followup. COMPLICATIONS: None. ESTIMATED BLOOD LOSS: None. IMPRESSION: Successful direct current cardioversion. PLAN: 1. Recovery and discharge from the [facility]. 2. Continue current medication regimen. 3. INR checked tomorrow. He is to let our anticoagulation clinic nurse know that he is on higher dose of amiodarone now. 4. Followup with Javi Treviño in clinic in three weeks. ATTENDING STATEMENT: Puneet Adamson MD, electrophysiology attending, was present for and supervised/performed all aspects of this procedure.
== END 2016-04-28 23:59 | disposition home or self-care (01) ==
LOC: SOUO 09:42
PROVIDERS: ATTEND Internal Medicine Cardiovascular Disease
DX: I48.1 Persistent atrial fibrillation (principal); Z79.01 Long term (current) use of anticoagulants
CPT/HCPCS: 92960; 93005; 99152; J2250

== ENCOUNTER 2016-08-26 00:42 | Emergency (ER) | payer OTHER ==
[~2016-08-26] VITALS: Ht 180.3 cm; Wt 102.3 kg
[2016-08-26 00:45] VITALS: BP 156/94; PULSE 77; RESP 18; O2SAT 97
--- NOTE | 2016-08-26 00:58 | ED.REPORT ---
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 Pt reports breaking a glass and getting cut on the top of his right foot.. Pt is on warfarin and utd on his tetanus. He requests his INR to be tested tonight. Nursing Notes Stated Complaint: R FOOT LACERATION Chief Complaint: Laceration Nursing Notes Reviewed: Yes Allergies: Coded Allergies: codeine (Verified Allergy, Intermediate, Rash,Itching,, 08/26/16) Scheduled Amiodarone (Amiodarone) 200 Mg Tablet 400 MG PO BID Atorvastatin (Lipitor) 20 Mg Tablet 20 MG PO DAILY Lisinopril (Lisinopril) 20 Mg Tablet 20 MG PO DAILY Metoprolol Succinate ER (Toprol XL) 50 Mg Tablet 50 MG PO BID Pantoprazole DR (Pantoprazole DR) 40 Mg Tablet.dr 40 MG PO DAILY Warfarin Sodium (Warfarin Sodium) 5 Mg Tablet 5 MG PO DAILY General Time Seen by MD: 00:44 Chief Complaint Other (right foot laceration) Hx Obtained From: Patient Arrived By: Walk-in Onset Occurred: Just prior to arrival Symptom Duration: Since onset Caused by: Accidental Location: : Foot right Quality: Painful Severity: Current: Mild Immunizations: Tetanus up to date Recent Healthcare: No recent doctor visit, No recent hospitalization Similar Sx Previous: No Past Medical History Past Medical History atrial fibrillation Cath 2-3 years ago with minimal disease Past Surgical History none reported Smoking History Former Smoker Social History Alcohol Use: "Social" Drug Use: Denies drug use Other Social History: Good social support, Ambulatory Status Independent Review of Systems Constitutional: Denies: Chills, Fever Musculoskeletal: Reports: Extremity pain Skin: Denies Diaphoresis Neurologic: Reports: Problem walking, Denies: Change LOC, Syncope Complete sys rev & neg: except as marked. Hematologic: Reports Bleeding (right foot laceration) Physical Exam Initial Vital Signs Vital Signs (First) Date Time Temp Pulse Resp B/P Pulse Ox O2 Delivery O2 Flow Rate FiO2 08/26/16 00:45 36.3 77 18 156/94 97 Room Air Initial VS: Reviewed Lower Extremity / Pelvis / MS: Atraumatic, Inspection NL, Full range of motion , No deformity Trauma / Burn / Environmental: Positive: Laceration 3inch right lateral foot laceration no signs of tendon involvement General/Constitutional: Awake, Alert, No acute distress, Cooperative Skin: Atraumatic, Color NL, No rash Head / Eyes: Atraumatic, Normocephalic, PERRL ENT: Atraumatic, Mucous membranes moist Upper Extremity / MS: Atraumatic, Inspection NL, Full range of motion, No deformity Wrist / Hand: Atraumatic, Inspection NL, Full range of motion, No deformity Interpretation & Diagnostics Lab Results Interpretation Test 08/26/16 01:14 Hold Purple Top Tube Received (Received) Prothrombin Time 9.9sec (8.1-12.5) Prothromb Time International Ratio 0.93ratio Hold Coin Top Tube Received (Received) Hold Garrison Top Tube Received (Received) Lab Results Interpretation: INR is 0.93 Procedures Laceration Management Time: 01:10 Procedure Performed by: ED physician Consent / Setup / Site Prep: Informed consent provided, Consent from patient , Hand hygiene observed, Stand sterile technique Location of Wound: lateral right foot Wound Length: 8 cm Local Anesthesia: Lidocaine 1% Wound Preparation: Normal saline Debridement: None Irrigation: Copious Foreign Body Explore / Removal: Explored for foreign body Repair Skin: ___ O (4), Nylon # Sutures - Skin: 7 Suture Technique: Simple Post-Procedure / Complications: Antibiotic oint applied, Dressing applied, No complications, Condition improved, Tolerated procedure well, Patient stable Re-Eval/Medical Decision Med Decision/Clinical Course 1300: Laceration management by med student. 3 inch laceration to right lateral foot. Pt tolerated procedure well. Pt's INR is 0.93. I was present before, during and after the wound closure. I got a good look at the base of the wound in a bloodless field. No tendinous involvement. Wound was closed well. INR is subtherapeutic. Mr. Conde will follow his doctor's recommendations on this. He is on warfarin for atrial fibrillation and he has never had a stroke. Bridging with Lovenox most likely unnecessary however I do recommend any his INR checked closely. If he needs to be on antibiotics for wound infection he will have his INR checked 48 hours after starting antibiotics as well. Re-Evaluation/Progress : Time of Eval: 01:41 Re-Evaluation/Progress Note: Laceration managemnet successfully performed. 3 inch laceration to right lateral foot. Pt tolerated procedure well. INR is 0.93. Plan for discharge. Counseled Regarding: Diagnosis, Lab results, Need for follow-up, When/why to return to ED Discharge & Departure Impression: Primary Impression: Laceration Disposition: Home Discharge Condition All VS Reviewed: Yes Condition: Stable Patient Instructions: Care For Your Stitches (ED), Laceration (ED) Additional Instructions: Thank you for entrusting us with your care today. Keep the stitches clean and dry. Return to the Emergency Room in 48 hrs for a wound recheck. Have the stitches removed in 7-10 days by your primary care physician or at the Emergency Room. Take Tylenol for pain. Your INR is 0.93. Take an extra dose of warfarin tonight and call your doctor in the morning for further recommendations. Return to the Emergency Department if you experience any new or worsening symptoms including any signs of infection such as redness, swelling , warmth, or fever. Have a great time at the [employer]! Referrals: Ira Aranda (PCP) Scribe Attestation Portion of this note were transcribed by Shila Morales. I, Dr. Ramesh, personally performed the history, physical exam, and medical decision-making: I reviewed and confirmed the accuracy for the information in the transcribed note. Signed by: dorothy Luciano, 08/25/16 0200 copies to: Ira Aranda Todd P DO Aug 26, 2016 00:58 Shila Morales Aug 26, 2016 01:11
[2016-08-26] MEDS ORDERED: Lidocaine 1% 50 mL Inj NERVEBLOCK ONE (01:05)
[2016-08-26 01:35] LABS: INR 0.93 ratio
[2016-08-26 02:31] VITALS: BP 133/82; PULSE 79; RESP 18; O2SAT 99
== END 2016-08-26 02:32 | disposition home or self-care (01) ==
LOC: SED 00:42
DX: S91.311A Laceration without foreign body, right foot, initial encounter (principal); W25.XXXA Contact with sharp glass, initial encounter; Y93.89 Activity, other specified; Y99.8 Other external cause status; Y92.019 Unspecified place in single-family (private) house as the place of occurrence of the external cause; I48.91 Unspecified atrial fibrillation; I10 Essential (primary) hypertension; Z87.891 Personal history of nicotine dependence; Z79.01 Long term (current) use of anticoagulants; Z88.5 Allergy status to narcotic agent

== ENCOUNTER 2016-09-07 11:13 | Emergency (ER) | payer OTHER ==
[2016-09-07 11:21] VITALS: BP 136/82; PULSE 55; RESP 16; O2SAT 96
== END 2016-09-07 11:41 | disposition home or self-care (01) ==
LOC: SED 11:13
DX: Z48.02 Encounter for removal of sutures (principal)

== ENCOUNTER 2016-09-14 10:36 | Emergency (ER) | payer OTHER ==
[2016-09-14 10:52] VITALS: BP 164/96; PULSE 56; RESP 16; O2SAT 95
--- NOTE | 2016-09-14 11:12 | ED.REPORT ---
HPI-Recheck W/B/S Date of Service Sep 14, 2016 ED Provider: Celestino Rawls MD Buffy returns to the emergency department today to have sutures removed. They were initially placed 2 weeks ago at [facility] about a week ago. He says that he has no complaints about the wound. It seems to be healing from his perspective. Nursing Notes Stated Complaint: SUTURE REMOVAL Chief Complaint: Wound Recheck/Suture Removal Allergies: Coded Allergies: codeine (Verified Allergy, Intermediate, Rash,Itching,, 09/07/16) Scheduled Amiodarone (Amiodarone) 200 Mg Tablet 400 MG PO BID Atorvastatin (Lipitor) 20 Mg Tablet 20 MG PO DAILY Lisinopril (Lisinopril) 20 Mg Tablet 20 MG PO DAILY Metoprolol Succinate ER (Toprol XL) 50 Mg Tablet 50 MG PO BID Pantoprazole DR (Pantoprazole DR) 40 Mg Tablet.dr 40 MG PO DAILY Warfarin Sodium (Warfarin Sodium) 5 Mg Tablet 5 MG PO DAILY General Time Seen by Provider: 10:59 Chief Complaint Wound check Past Medical History Past Medical History atrial fibrillation Cath 2-3 years ago with minimal disease Denies: Diabetes mellitus Past Surgical History none reported Smoking History Former Smoker Social History Alcohol Use: "Social" Drug Use: Denies drug use Other Social History: Good social support, Ambulatory Status Independent Review of Systems Constitutional: Denies: Chills, Fever Complete sys rev & neg: except as marked. Physical Exam The wound is carefully inspected all sutures are removed by myself and nurse, Ms. Martinez ALMEIDA. The wound is not entirely closed itself. There is some cellular debris at the base of the wound there is no erythema or purulence no significant warmth. The wound is located on the dorsum and lateral aspect of the right foot. The foot is otherwise well-perfused with normal sensation. Initial Vital Signs Vital Signs (First) Date Time Temp Pulse Resp B/P Pulse Ox O2 Delivery O2 Flow Rate FiO2 09/14/16 10:52 36.6 56 16 164/96 95 Initial VS: Reviewed Discharge & Departure Impression: Primary Impression: Encounter for wound re-check Disposition: Home Additional Instructions: I had a lengthy discussion with the patient regarding the wound care. I instructed and demonstrated for him wet to dry dressings and recommended he do this once or twice a day. If the wound is not progressively improving over the next few weeks he needs follow-up and wound care. I recommended that he follow- up with his primary care doctor to repeat diabetes screening because of the difficulty with this wound. Referrals: Ira Aranda (PCP) Celestino Rawls MD Sep 14, 2016 11:12
== END 2016-09-14 11:06 | disposition home or self-care (01) ==
LOC: SED 10:36
DX: Z48.02 Encounter for removal of sutures (principal); I48.91 Unspecified atrial fibrillation; Z79.01 Long term (current) use of anticoagulants; Z87.891 Personal history of nicotine dependence; Z88.5 Allergy status to narcotic agent